=== PATIENT | female | born 1970 | race Caucasian/White ===

== ENCOUNTER → 2017-03-19 | Outpatient (CLI) | payer BC, OTHER ==
[~2017-03-19] MED LIST: ASPI-482 PO; HYDR12.58 PO; IBUP200T43 PO; META-21 PO; PROP10TA PO
[2017-03-19] MEDS: GADOBUTROL 7.5 MMOL/7.5 ML VIAL INT ART ONE (11:55)
[2017-03-19] MEDS: LIDOCAINE 1% Multi-Dose 20 ML VIAL. ID ONE (11:55)
[2017-03-19] MEDS: IOHEXOL 300 MG/ML 50 ML VIAL. INT ART ONE (11:55)
--- NOTE | 2017-03-19 14:06 | KCIC ---
MR arthrogram of the right shoulder Indication: Pain. Limited range of motion. Injury March 04, 2017. Technique: Intra-articular contrast injected into the glenohumeral joint and is reported separately. Routine 4 plane sequences were obtained, including ABER positioning. Findings: Acromioclavicular joint: Minimally degenerative. Rotator cuff: Mild tendinosis signal. No evidence of a rotator cuff tear. Subdeltoid bursa: Mild contrast accumulation, presumably just from the injection as there is no communicating rotator cuff defect. Articular cartilage: No evidence of a acute cartilage defect or advanced osteoarthritis. Labrum:No evidence of labral tear or para labral cyst Biceps tendon: Intact Bones: No lesion or acute fracture. Soft tissue: No acute findings. Impression: 1. Rotator cuff tendinosis without a measurable tear. 2. No evidence of labral tear Electronically signed by: Hernan Pierce MD (03/19/2017 2:03 PM) [facility]
--- NOTE | 2017-03-19 16:46 | KCIC ---
PROCEDURE: Right shoulder injection using fluoroscopic guidance, prior to MR. HISTORY: Shoulder pain. Limited range of motion. TECHNIQUE: The procedure was explained to the patient as were potential risks, including among others infection, bleeding or allergic reaction. All questions were answered. Informed written and verbal consent was obtained. The shoulder was prepped and draped in the usual sterile manner. Following administration of local anesthetic, a 22-gauge needle was advanced into the anterior shoulder. Following negative aspiration, 12 cc of a solution of 5cc Omnipaque-300 contrast, 5 cc 1% lidocaine, 10 cc normal saline, and 0.1 cc gadolinium was injected without difficulty. The needle was removed. There was good hemostasis at the injection site. The patient left in stable condition without immediate complication. The patient was given postprocedural instructions, and instructed to contact us or the ER if there are any complications. A single spot image is obtained. FLUOROSCOPY TIME:?26 seconds Electronically signed by: Hernan Pierce MD (03/19/2017 4:43 PM) [facility]
== END | disposition home or self-care (01) ==
LOC: KCIC 10:11
PROVIDERS: ATTEND Family Medicine
DX: S49.91XD Unspecified injury of right shoulder and upper arm, subsequent encounter (principal); Z90.710 Acquired absence of both cervix and uterus; X58.XXXD Exposure to other specified factors, subsequent encounter
CPT/HCPCS: 73040; 73222; A9585; Q9967

== ENCOUNTER → 2019-01-09 | Day surgery (SDC) | payer BC, OTHER ==
[~2019-01-09] MED LIST changes: +CETI10TA22 PO; +DOXY50CA PO; -IBUP200T43 PO; +IBUP200T44 PO; +IV RINGERS,LACTATED 1000ML 1,000 ML IV SCH; +LIDOCAINE 1% PF 2 ML VIAL. ID PRN; +LIDOCAINE 2% PF 5 ML VIAL. ONE; +MIDAZOLAM HCL/PF 2 MG/2 ML VIAL. IV PRN; +PROPOFOL 40 ML IV ONE; +fentaNYL PF VIAL 100 MCG/2 ML VIAL IV PRN
[2019-01-09 07:59] VITALS: BP 150/64
--- NOTE | 2019-01-09 23:27 | CONS ---
DATE OF CONSULTATION: 01/09/2019 REFERRING PHYSICIAN: Victor Hugo Appiah MD REASON FOR CONSULTATION: Colorectal screening. HISTORY OF PRESENT ILLNESS: A 48-year-old female with past medical history significant for hysterectomy, tonsillectomy as well as hypertension, is seen for screening colon exam. Bowel habits are irregular with constipation with small bowel movements every other day. Been no melena and/or hematochezia. Weight and appetite are stable. No family history of colon polyps or colon cancer is noted, but Crohn's disease with her father. She is otherwise without additional complaints. PAST MEDICAL HISTORY: Hypertension, osteoarthrosis. ALLERGIES: SULFA, CODEINE, FLAGYL. MEDICATIONS: Zyrtec, doxycycline, hydrochlorothiazide, ibuprofen, Skelaxin and propranolol. SOCIAL HISTORY: Former smoker and drinker. FAMILY HISTORY: Significant for Crohn's disease with father. PAST SURGICAL HISTORY: Status post hysterectomy and tonsillectomy. REVIEW OF SYSTEMS: HEENT: There is no decrease in her visual acuity issues. CARDIAC: There is history of hypertension. NEUROLOGIC: No stroke or migraine. PSYCHIATRIC: No mood swings, depression, insomnia. GASTROINTESTINAL: See history of present illness. PULMONARY: No shortness breath, productive cough, or asthma. RENAL: No dysuria, frequency, hematuria. CARDIOVASCULAR: There is hypertension. ENDOCRINE: No history of heat or cold intolerance, thyroid disease or diabetes. HEMATOLOGIC: No bleeding, bruising, coagulopathy. MUSCULOSKELETAL: History of osteoarthrosis. DERMATOLOGIC: No skin rashes or pruritus. PHYSICAL EXAMINATION: GENERAL: Reveals a well-nourished, well-developed female. VITAL SIGNS: Temperature is 97, pulse 61, respirations 20. HEENT: Reveals normocephalic, atraumatic head. Pupils and extraocular muscles are not tested. Sclerae anicteric. NECK: Supple. LUNGS: Clear. CARDIOVASCULAR: Reveals an S1, S2 without S3, S4 or appreciable murmur. ABDOMEN: Reveals a soft abdomen, normal bowel sounds, without appreciable hepatosplenomegaly with infraumbilical hysterectomy incision. EXTREMITIES: Reveals no cyanosis, clubbing or edema. IMPRESSION: Colorectal screening is warranted at this time. Risks and benefits of procedure including risk of hemorrhage and perforation during the operation have been discussed with the patient who is willing to proceed. I would like to thank Dr. Appiah for allowing us to consult and participate in this patient's care. MELANIE FRIAS MD DR: FIORDALIZA/raffi JOB#: [id number] / [id number] VICTOR HUGO Cox MD
--- NOTE | 2019-01-12 17:06 | PATHOLOGY ---
[facility] Accession Number: [id number] . 01 Material submitted: . rectum - RECTAL POLYP . 01 Clinical history: . Screening . 02 Diagnosis: Colorectal biopsy, rectal polyp: - Tubular adenoma. (M:[facility] 01/12/2019) P/01/12/2019 . 02 Comment: There is no high-grade dysplasia or evidence of malignancy. ([facility] 01/12/2019) . 02 Electronically signed: . Michael Coates MD, Pathologist NPI- [id number] . 01 Gross description: . Received in formalin labeled "Plunkett, Briana, rectal polyp," is a 0.9 x 0.8 x 0.7 cm polypoid piece of patel soft tissue. The margin is inked and the tissue is sectioned perpendicular to the margin and submitted entirely in cassettes A1 and A2. ([facility]; 01/09/2019) TOB/TOB . 02 Pathologist provided ICD-10: D12.8 . 02 CPT . 164339 Specimen Comment: A courtesy copy of this report has been sent to Specimen Comment: [phone], . Specimen Comment: Report sent to / DR SIMEON Performed at: 01 [facility] [address], [place], [place] [id number] MD Ravinder Voss MD Phone: [phone] Performed at: 02 [facility] [address] [place], [place] [id number] MD Michael Coates MD Phone: [phone]
== END ==
LOC: SURG 05:55
PROVIDERS: ATTEND Internal Medicine Gastroenterology
DX: D12.8 Benign neoplasm of rectum (principal); K64.0 First degree hemorrhoids; I10 Essential (primary) hypertension; Z90.710 Acquired absence of both cervix and uterus; Z98.890 Other specified postprocedural states; Z87.39 Personal history of other diseases of the musculoskeletal system and connective tissue; Z88.1 Allergy status to other antibiotic agents; Z88.5 Allergy status to narcotic agent; Z88.8 Allergy status to other drugs, medicaments and biological substances; Z87.891 Personal history of nicotine dependence; Z72.89 Other problems related to lifestyle
CPT/HCPCS: 45385; 88305; J2001; J2704; 45380

== ENCOUNTER → 2019-01-12 | Outpatient (CLI) | payer BC, OTHER ==
[2019-01-09 07:59] VITALS: BP 150/64
[~2019-01-12] MED LIST changes: -IV RINGERS,LACTATED 1000ML 1,000 ML IV SCH; -LIDOCAINE 1% PF 2 ML VIAL. ID PRN; -LIDOCAINE 2% PF 5 ML VIAL. ONE; -MIDAZOLAM HCL/PF 2 MG/2 ML VIAL. IV PRN; -PROPOFOL 40 ML IV ONE; -fentaNYL PF VIAL 100 MCG/2 ML VIAL IV PRN
--- NOTE | 2019-01-12 10:25 | CARD ---
MR#: [id number] Date of Study: 01/12/2019 Ordering Physician: JYOTSNA SIMEON, Referring Physician: JYOTSNA SIMEON Tech: Sharmaine Ignacio [facility] APPROVED REPORT EXAM: Two-dimensional and M-mode echocardiogram with Doppler and color Doppler. Other Information Quality : Good INDICATION Palpitations 2D DIMENSIONS RVDd2.6 (2.9-3.5cm)Left Atrium(2D)3.2 (1.6-4.0cm) IVSd0.8 (0.7-1.1cm)Aortic Root(2D)2.8 (2.0-3.7cm) LVDd4.8 (3.9-5.9cm)LVOT Diameter2.0 (1.8-2.4cm) PWd0.9 (0.7-1.1cm)LVDs3.4 (2.5-4.0cm) FS (%) 30.6 %SV63.7 ml LVEF(%)57.9 (>50%) Aortic Valve AoV Peak Chucky.142.3cm/sAoV VTI32.1cm AO Peak GR.8.1mmHgLVOT Peak Chucky.103.9cm/s AO Mean GR.4mmHgAVA (VMAX)2.24cm2 DAVID (VTI)2.50cm2 Mitral Valve MV E Jcdrzhif62.6cm/sMV DECEL [id number] MV A Orddznvn58.2cm/sE/A Ratio1.7 Tricuspid Valve TR P. Chcbsvqq657ii/sRAP [id number] TR Peak Gr.99blTuCIMR02djIo Pulmonary Vein S1 Cvordlbf67.4cm/sD2 Bvdlveiu64.4cm/s LEFT VENTRICLE The left ventricle is normal size. There is normal left ventricular wall thickness. The left ventricu lar systolic function is normal and the ejection fraction is within normal range. The Ejection Fracti on is 55-60%. There is normal LV segmental wall motion. The left ventricular diastolic function and f illing is normal for age. RIGHT VENTRICLE The right ventricle is normal size. The right ventricular systolic function is normal. ATRIA The left atrium size is normal. The right atrium size is normal. The interatrial septum is intact wit h no evidence for an atrial septal defect or patent foramen ovale as noted on 2-D or Doppler imaging. AORTIC VALVE The aortic valve is calcified but opens well. Doppler and Color Flow revealed no significant aortic r egurgitation. There is no significant aortic valvular stenosis. MITRAL VALVE The mitral valve is thickened but opens well. There is no evidence of mitral valve prolapse. There is no mitral valve stenosis. Doppler and Color-flow revealed trace mitral regurgitation. TRICUSPID VALVE The tricuspid valve is normal in structure and function. Doppler and Color Flow revealed trace tricus pid regurgitation. The PA pressure was estimated at 26 mmHg. There is no tricuspid valve stenosis. PULMONIC VALVE The pulmonary valve is normal in structure and function. Doppler and Color Flow revealed mild pulmoni c valvular regurgitation. There is no pulmonic valvular stenosis. GREAT VESSELS The aortic root is normal in size. The ascending aorta is normal in size. The IVC is normal in size a nd collapses >50% with inspiration. PERICARDIAL EFFUSION There is no evidence of significant pericardial effusion. Critical Notification Critical Value: No <Conclusion> The left ventricle is normal size. The left ventricular systolic function is normal and the ejection fraction is within normal range. The Ejection Fraction is 55-60%. There is no significant aortic valvular stenosis. Doppler and Color Flow revealed no significant aortic regurgitation. Doppler and Color-flow revealed trace mitral regurgitation. Doppler and Color Flow revealed trace tricuspid regurgitation. The PA pressure was estimated at 26 mmHg. Signed by : Gerardo Lemus MD Electronically Approved : 01/12/2019 10:24:26
== END | disposition home or self-care (01) ==
LOC: ECHO 08:50
PROVIDERS: ATTEND Family Medicine
DX: I08.8 Other rheumatic multiple valve diseases (principal)
CPT/HCPCS: 93306